=== PATIENT | female | born 1960 | race Caucasian/White ===

== ENCOUNTER 2016-12-13 10:26 | Emergency (ER) | payer SELFPAY ==
[~2016-12-13] VITALS: Ht 157.5 cm; Wt 95.0 kg
[~2016-12-13 10:26] MED LIST: ESTR1TAB12 PO; LORTA5 PO
[2016-12-13 10:28] VITALS: BP 128/84; PULSE 102; RESP 24; TEMP 97.8; O2SAT 94
[2016-12-13 11:15] VITALS: O2SAT 93
[2016-12-13] MEDS ORDERED: methylPREDNISolone SOD SUCC 125 MG/2 ML VIAL IVP ONE (11:15)
[2016-12-13] MEDS: RESP: ALBUTEROL 2.5 MG/IPRATROPIUM 0.5 MG NEB (SCH) INH ×2 (11:15→12:40)
[2016-12-13] MEDS ORDERED: SODIUM CHLORIDE 0.9% FLUSH 5 ML FLUSH IVF PRN (11:15)
[2016-12-13 11:47] LABS: AUTOMATED NEUTROPHIL # 4.8 TH/MM3 (1.8-7.7); BASOPHIL # 0.1 TH/MM3 (0-0.2); BASOPHIL % 0.6 % (0.0-2.0); EOSINOPHIL # 0.4 TH/MM3 (0-0.4); EOSINOPHIL % 4.2 % (0.0-4.0); HEMATOCRIT 41.3 % (35.0-46.0); HEMO FLAGS DIFF FINAL; LYMPH % 36.6 % (9.0-44.0); LYMPHOCYTE # 3.7 TH/MM3 (1.0-4.8); MEAN CELL VOLUME 82.2 FL (80.0-100.0); MEAN CORPUSCULAR HEMOGLOBIN 27.5 PG (27.0-34.0); MEAN CORPUSCULAR HGB CONC 33.5 % (32.0-36.0); MONO % 10.6 % (0.0-8.0); PLATELET COUNT 301 TH/MM3 (150-450); RED BLOOD COUNT 5.03 MIL/MM3 (4.00-5.30); WHITE BLOOD COUNT 10.1 TH/MM3 (4.0-11.0)
--- NOTE | 2016-12-13 11:58 | RADRPT ---
EXAM DATE/TIME: 12/13/2016 11:30 [facility] COMPARISON: No previous studies available for comparison. INDICATIONS : Short of Breath MEDICAL HISTORY : Chronic obstructive pulmonary disease. SURGICAL HISTORY : None. ENCOUNTER: Initial ACUITY: 1 day PAIN SCORE: 0/10 LOCATION: Bilateral chest FINDINGS: A single view of the chest demonstrates the lungs to be symmetrically aerated without evidence of mas s, infiltrate or effusion. The cardiomediastinal contours are unremarkable. Osseous structures are intact. CONCLUSION: No acute pulmonary infiltrates. González Santiago MD on December 13, 2016 at 11:56 Board Certified Radiologist. This report was verified electronically.
[2016-12-13 12:00] LABS: ANION GAP 9 MEQ/L (5-15); BICARBONATE 28.3 MEQ/L (21.0-32.0); BLOOD UREA NITROGEN 15 MG/DL (7-18); CHLORIDE 107 MEQ/L (98-107); GLOMERULAR FILTRATION RATE 81 ML/MIN (>89); POTASSIUM 4.1 MEQ/L (3.5-5.1); SODIUM (NA) 144 MEQ/L (136-145)
[2016-12-13 12:47] VITALS: BP 122/68; PULSE 84; RESP 18; O2SAT 98
[2016-12-13] MEDS ORDERED: ZITHTAB PO (13:15)
[2016-12-13] MEDS ORDERED: ADVA250A INH (13:15)
[2016-12-13] MEDS ORDERED: ALBU6.7H INH (13:15)
[2016-12-13] MEDS ORDERED: PRED50 PO (13:15)
--- NOTE | 2016-12-13 13:15 | PD ---
HPI Chief Complaint: Respiratory Symptoms Time Seen by Provider: 11:06 Travel History International Travel<30 days: No Contact w/Intl Traveler<30days: No Traveled to known affect area: No History of Present Illness HPI 56-year-old female with history of COPD, nursing notes reviewed, presents to the ER today because she is having one-week history of coughing and shortness of breath, worsening in the past day. She states that she has been using her inhaler without significant relief. She denies any fevers or any other issues. Symptoms worsen with laying down and walking around. Modifying Factors: Worse with exertion and laying down Associated Signs & Symptoms: Coughing and shortness of breath worsening in the past day, going on for a week Risk Factors: COPD PFSH Past Medical History Anxiety: Yes COPD: Yes Musculoskeletal: Yes (CHRONIC BACK PAIN AND SCIATICA) ?: Not Menopausal: Yes : 0 Social History Alcohol Use: No Tobacco Use: Yes (1 PPD X 30 YEARS) Substance Use: No Allergies-Medications (Allergen,Severity, Reaction): Coded Allergies: No Known Allergies (Verified , 12/13/16) Reported Meds & Prescriptions Reported Meds & Active Scripts Active Lortab 5/325 Tab (Hydrocodone-Acetaminophen) 1 Tab Tab 1 Tab PO Q6 PRN Reported Estrace (Estradiol) 1 Mg Tab 1 Mg PO DAILY Review of Systems Except as stated in HPI: all other systems reviewed are Neg Physical Exam Narrative GENERAL: Well-nourished, well-developed middle age white female patient in mild respiratory distress. Awake and oriented 3. SKIN: Warm and dry. HEAD: Normocephalic. EYES: No scleral icterus. No injection or drainage. NECK: Supple, trachea midline. CARDIOVASCULAR: Regular rate and rhythm without murmurs, gallops, or rubs. RESPIRATORY: Breath sounds equal and decreased throughout with mild wheezing throughout bilaterally. Mild accessory muscle use. GASTROINTESTINAL: Abdomen soft, non-tender, nondistended. MUSCULOSKELETAL: No cyanosis, or edema. BACK: Nontender without obvious deformity. No CVA tenderness. Data Data Last Documented VS Vital Signs Date Time Temp Pulse Resp B/P Pulse Ox O2 Delivery O2 Flow Rate FiO2 12/13/16 12:47 84 18 122/68 98 Nasal Cannula 2 12/13/16 11:15 21 12/13/16 10:28 97.8 Orders Electrocardiogram (12/13/16 ) Complete Blood Count With Diff (12/13/16 11:06) Basic Metabolic Panel (Bmp) (12/13/16 11:06) B-Type Natriuretic Peptide (12/13/16 11:06) Troponin I (12/13/16 11:06) Iv Access Insert/Monitor (12/13/16 11:06) Ecg Monitoring (12/13/16 11:06) Oximetry (12/13/16 11:06) Oxygen Administration (12/13/16 11:06) Chest, Single Ap (12/13/16 11:06) Sodium Chloride 0.9% Flush (Ns Flush) (12/13/16 11:15) Methylprednisolone So Succ Inj (Solumedr (12/13/16 11:15) Albuterol-Ipratropium Neb (Duoneb Neb) (12/13/16 11:15) Albuterol-Ipratropium Neb (Duoneb Neb) (12/13/16 12:30) Labs Laboratory Tests Test 12/13/16 11:21 White Blood Count 10.1 TH/MM3 Red Blood Count 5.03 MIL/MM3 Hemoglobin 13.8 GM/DL Hematocrit 41.3 % Mean Corpuscular Volume 82.2 FL Mean Corpuscular Hemoglobin 27.5 PG Mean Corpuscular Hemoglobin 33.5 % Concent Red Cell Distribution Width 14.0 % Platelet Count 301 TH/MM3 Mean Platelet Volume 8.6 FL Neutrophils (%) (Auto) 48.0 % Lymphocytes (%) (Auto) 36.6 % Monocytes (%) (Auto) 10.6 % Eosinophils (%) (Auto) 4.2 % Basophils (%) (Auto) 0.6 % Neutrophils # (Auto) 4.8 TH/MM3 Lymphocytes # (Auto) 3.7 TH/MM3 Monocytes # (Auto) 1.1 TH/MM3 Eosinophils # (Auto) 0.4 TH/MM3 Basophils # (Auto) 0.1 TH/MM3 CBC Comment DIFF FINAL Differential Comment Sodium Level 144 MEQ/L Potassium Level 4.1 MEQ/L Chloride Level 107 MEQ/L Carbon Dioxide Level 28.3 MEQ/L Anion Gap 9 MEQ/L Blood Urea Nitrogen 15 MG/DL Creatinine 0.74 MG/DL Estimat Glomerular Filtration 81 ML/MIN Rate Random Glucose 93 MG/DL Calcium Level 8.8 MG/DL Troponin I LESS THAN 0.02 NG/ML B-Type Natriuretic Peptide 25 PG/ML MDM Medical Decision Making Medical Screen Exam Complete: Yes Emergency Medical Condition: Yes Medical Record Reviewed: Yes Interpretation(s) EKG shows NSR at a rate of 90 bpm, no ST elevation or depression, and no arrhythmias. No significant T-wave inversions. Laboratory Tests Test 12/13/16 11:21 Monocytes (%) (Auto) 10.6 % (0.0-8.0) Eosinophils (%) (Auto) 4.2 % (0.0-4.0) Monocytes # (Auto) 1.1 TH/MM3 (0-0.9) Estimat Glomerular Filtration 81 ML/MIN (>89) Rate Troponin I LESS THAN 0.02 NG/ML (0.02-0.05) Last 24 hours Impressions Chest X-Ray 12/13/16 1106 Signed Impressions: Service Date/Time: Tuesday, December 13, 2016 11:30 - CONCLUSION: No acute pulmonary infiltrates. González Santiago MD Differential Diagnosis Coughing, shortness of breathCOPD exacerbation versus CHF versus pneumonia versus bronchitis Narrative Course Chest x-ray did not indicate any signs of pneumonia. Patient was given some Medrol and DuoNeb's in the ER. On reevaluation at 1 PM, she is feeling improved and her saturations improved. At this point, my plan would be to release the patient would follow-up to primary care physician. Return for any worsening in symptoms as needed. The plan has been discussed with her and she states understanding. Diagnosis Primary Impression: COPD exacerbation Med/Other Pt SpecificInfo: Prescription(s) given Scripts Fluticasone-Salmeterol Inh (Advair Diskus Inh)250-50 Mcg/Blist Aer1 Puff INH BID #1 INHALER Ref 0 Rinse mouth after use. Prov:Joceline Rivera MD 12/13/16 Azithromycin (Zithromax Z-Yasmany)250 Mg [id number] Mg PO DIRECTED #1 DSPK Ref 0 500 MG (2 tabs) day 1, then 1 tab days 2-5. Prov:Joceline Rivera MD 12/13/16 Albuterol 6.7 GM Inh (Proventil Hfa 6.7 GM Inh)90 Mcg/Act Aer2 Puff INH Q4-6H PRN (SHORTNESS OF BREATH) #1 INHALER Ref 0 Prov:Joceline Rivera MD 12/13/16 Prednisone 50 Mg Tab50 Mg PO DAILY #5 TAB Ref 0 Prov:Joceline Rivera MD 12/13/16 Disposition: 01 DISCHARGE HOME Condition: Stable Joceline Rivera MD Dec 13, 2016 13:15
--- NOTE | 2016-12-13 14:43 | EKG ---
Date Performed: 12/13/2016 Time Performed: 10:41:24 PTAGE: 56 years EKG: Sinus rhythm POSSIBLE LEFT ATRIAL ENLARGEMENT POSSIBLE RIGHT VENTRICULAR CONDUCTION DELAY SEPTAL MYOCARDIAL INFAR CTION Compared to previous tracing, R wave progression is worse, possibly due to lead placement diffe rences ABNORMAL ECG NO PREVIOUS TRACING DOCTOR: Bryan Moore Interpretating Date/Time 12/13/2016 14:41:08
== END 2016-12-13 13:52 | disposition home or self-care (01) ==
LOC: NEPA 10:26
DX: J44.1 Chronic obstructive pulmonary disease with (acute) exacerbation (principal); F41.9 Anxiety disorder, unspecified; Z87.891 Personal history of nicotine dependence
CPT/HCPCS: 71010; 80048; 83880; 84484; 85025; 93005; 94640; 94664; 96374; 99284; J2930

== ENCOUNTER 2017-10-15 17:42 | Emergency (ER) | payer SELFPAY ==
[~2017-10-15 17:42] MED LIST changes: +ADVA250A INH; +ALBU6.7H INH; +PRED50 PO; +ZITHTAB PO
[2017-10-15 17:45] VITALS: BP 178/96; PULSE 89; RESP 16; TEMP 98.4; O2SAT 100
--- NOTE | 2017-10-15 18:42 | RADRPT ---
EXAM DATE/TIME: 10/15/2017 18:18 [facility] COMPARISON: No previous studies available for comparison. INDICATIONS : Right wrist pain post fall today MEDICAL HISTORY : None. SURGICAL HISTORY : None. ENCOUNTER: Initial ACUITY: 1 day PAIN SCORE: 9/10 LOCATION: Right entire wrist FINDINGS: There is a nondisplaced intra-articular fracture of the distal radius. No dislocation. There some ove rlying soft tissue swelling. No other fractures are seen. CONCLUSION: 1. Relatively nondisplaced fracture distal radius. No other fractures identified. Chito Ruvalcaba MD on October 15, 2017 at 18:39 Board Certified Radiologist. This report was verified electronically.
--- NOTE | 2017-10-15 19:41 | PD ---
HPI Chief Complaint: Injury Time Seen by Provider: 19:38 Travel History International Travel<30 days: No Contact w/Intl Traveler<30days: No Traveled to known affect area: No History of Present Illness HPI 57-year-old female presents for evaluation of right wrist pain. She reports that 3 hours prior to arrival she slipped and fell, landing on her outstretched right hand. She has pain in the right wrist joint, throbbing, constant, worse with movement. Denies any numbness, tingling, weakness. Denies any other injuries and she has no other complaints at this time. [facility] Past Medical History Anxiety: Yes COPD: Yes Diabetes: No Patient Takes Glucophage: No Diminished Hearing: No Musculoskeletal: Yes (CHRONIC BACK PAIN AND SCIATICA) Menopausal: Yes : 0 Past Surgical History Surgical History: No Previous Surgery Social History Alcohol Use: No Tobacco Use: Yes (1 PPD X 30 YEARS) Substance Use: No Allergies-Medications (Allergen,Severity, Reaction): Coded Allergies: No Known Allergies (Verified , 12/13/16) Reported Meds & Prescriptions Reported Meds & Active Scripts Active Advair Diskus Inh (Fluticasone-Salmeterol Inh) 250-50 Mcg/Blist Aer 1 Puff INH BID Rinse mouth after use. Zithromax Z-Yasmany (Azithromycin) 250 Mg Dspk 250 Mg PO DIRECTED 500 MG (2 tabs) day 1, then 1 tab days 2-5. Proventil Hfa 6.7 GM Inh (Albuterol Sulfate) 90 Mcg/Act Aer 2 Puff INH Q4-6H PRN Prednisone 50 Mg Tab 50 Mg PO DAILY Hydrocodone/Acetaminophen 5 mg/325 mg 1 Tab Tab 1 Tab PO Q6 PRN Reported Estrace (Estradiol) 1 Mg Tab 1 Mg PO DAILY Review of Systems General / Constitutional: No: Fever, Chills Cardiovascular: No: Chest Pain or Discomfort Respiratory: No: Shortness of Breath Musculoskeletal: Positive: Pain Skin: Positive Other (denies open wounds) Physical Exam Narrative GENERAL: Well-developed well-nourished female in no acute distress SKIN: Warm and dry. HEAD: Atraumatic. Normocephalic. EYES: Pupils equal and round. No scleral icterus. No injection or drainage. ENT: No nasal bleeding or discharge. Mucous membranes pink and moist. NECK: Trachea midline. No JVD. CARDIOVASCULAR: Regular rate and rhythm. No murmur appreciated. RESPIRATORY: No accessory muscle use. Clear to auscultation. Breath sounds equal bilaterally. MUSCULOSKELETAL: Some soft tissue swellings developing to the right wrist joint. Tender to palpation right wrist joint. There is pain with flexion, extension, supination and pronation. Capillary refill less than 2 seconds all digits right hand. 2+ radial pulse. NEUROLOGICAL: Awake and alert. No obvious cranial nerve deficits. Motor grossly within normal limits. Normal speech. Data Data Last Documented VS Vital Signs Date Time Temp Pulse Resp B/P (MAP) Pulse Ox O2 Delivery O2 Flow Rate FiO2 10/15/17 17:45 98.4 89 16 178/96 (123) 100 Orders Orders Wrist, Complete ([id number]) (10/15/17 ) Splint Or Brace Apply/Monitor (10/15/17 19:37) Acetamin-Hydrocod 325-5 Mg ([place] 5-325 (10/15/17 19:45) Ed Discharge Order (10/15/17 19:37) [facility] Medical Decision Making Medical Screen Exam Complete: Yes Emergency Medical Condition: Yes Medical Record Reviewed: Yes Differential Diagnosis Wrist fracture, sprain, dislocation Narrative Course X-ray imaging of the right wrist reveals a nondisplaced distal radius fracture. The patient will be placed in a sugar tong splint, outpatient follow-up with orthopedics recommended. She reports that she has pain medication at home and does not require any prescriptions. She is stable for discharge. Diagnosis Primary Impression: Right wrist fracture Referrals: Varun Millan MD Additional Instructions: Follow-up with an orthopedist such as Dr. Millan in the next week, call his office to make an appointment. Do not remove the splint. Ice pack several times a day 20 minutes at a time, elevate to reduce swelling. Return for any emergent medical conditions. Med/Other Pt SpecificInfo: Orthopedic Instructions Disposition: 01 DISCHARGE HOME Condition: Stable Phani Ramirez Oct 15, 2017 19:41
[2017-10-15] MEDS ORDERED: HYDR-3583 PO (19:42)
[2017-10-15] MEDS ORDERED: SYMB80AE INH (19:42)
[2017-10-15] MEDS ORDERED: ACETAMINOPHEN/HYDROcodone 325 MG/5 MG TAB PO ONE (19:45)
== END 2017-10-15 20:45 | disposition home or self-care (01) ==
LOC: NEPD 17:42
DX: S52.501A Unspecified fracture of the lower end of right radius, initial encounter for closed fracture (principal); F41.9 Anxiety disorder, unspecified; J44.9 Chronic obstructive pulmonary disease, unspecified; F17.200 Nicotine dependence, unspecified, uncomplicated; W01.0XXA Fall on same level from slipping, tripping and stumbling without subsequent striking against object, initial encounter; Z79.51 Long term (current) use of inhaled steroids; Z79.899 Other long term (current) drug therapy
CPT/HCPCS: 29125; 73110

== ENCOUNTER 2017-10-19 10:38 | Emergency (ER) | payer SELFPAY ==
[~2017-10-19] VITALS: Ht 157.5 cm; Wt 90.0 kg
[~2017-10-19 10:38] MED LIST changes: -ADVA250A INH; -ALBU6.7H INH; -ESTR1TAB12 PO; +HYDR-3583 PO; -LORTA5 PO; -PRED50 PO; +SYMB80AE INH; -ZITHTAB PO
[2017-10-19 10:39] VITALS: BP 163/104; PULSE 103; RESP 16; TEMP 97.7; O2SAT 95
--- NOTE | 2017-10-19 11:36 | PD ---
HPI Chief Complaint: Medical Clearance Time Seen by Provider: 11:17 Travel History International Travel<30 days: No Contact w/Intl Traveler<30days: No Traveled to known affect area: No History of Present Illness HPI This is a 57-year-old female with a known right nondisplaced distal radius fracture. She presents today requesting that the cast be removed due to pain, swelling, inability to care for herself due to elbow immobilization. Patient reports that she is currently homeless and living in a long term. She currently has a sugar tong splint in place. It prevents her from being able to move the elbow therefore she cannot pull up her pain is on her own and is unable to care for herself. She is requesting that a smaller splint that just immobilizes the wrist and forearm to be placed so that she can care for herself. She reports swelling within the hand but denies paresthesia or weakness of the fingers. She denies worsening pain. PFSH Past Medical History Anxiety: Yes COPD: Yes Diabetes: No Diminished Hearing: No Musculoskeletal: Yes (CHRONIC BACK PAIN AND SCIATICA) ?: Not Menopausal: Yes : 0 Social History Alcohol Use: No Tobacco Use: Yes (1 PPD X 30 YEARS) Substance Use: No Allergies-Medications (Allergen,Severity, Reaction): Coded Allergies: No Known Allergies (Verified Adverse Reaction, Unknown, 10/19/17) Reported Meds & Prescriptions Reported Meds & Active Scripts Active Reported Symbicort Inh (Budesonide/Formoterol Fumarate) 80-4.5 Mcg/Act Aero 1 Puff INH Q12HR Review of Systems Except as stated in HPI: all other systems reviewed are Neg Physical Exam Narrative GENERAL: Alert female. Well-appearing. SKIN: Warm and dry. HEAD: Normocephalic. EYES: No scleral icterus. No injection or drainage. NECK: Supple, trachea midline. No JVD or lymphadenopathy. MUSCULOSKELETAL: No cyanosis. Right upper extremity: Sugar tong cast was removed. Compartments in the forearm and hand are soft. The wrist is in normal alignment without deformity. 2+ radial/ulna pulses. Normal sensation in the hand. The extremity is warm. Brisk cap refill. Data Data Last Documented VS Vital Signs Date Time Temp Pulse Resp B/P (MAP) Pulse Ox O2 Delivery O2 Flow Rate FiO2 10/19/17 10:39 97.7 103 16 163/104 (123) 95 Room Air Orders Orders [employer] Request For Service (10/19/17 11:23) MDM Medical Decision Making Medical Screen Exam Complete: Yes Emergency Medical Condition: Yes Differential Diagnosis Distal radius fracture, compartment syndrome, splint removal/resplinted Narrative Course This is a 57-year-old female here with known distal radius fracture and has a sugar tong splint in place. She is requesting that the splint be removed and replaced with something smaller so that she can care for herself. She reports that she is homeless and currently living in a long term. She is unable to remove her pants and underwear to use the restroom with out use of her right elbow. It was discussed at length that applying a smaller splint although unlikely could result in displacement of the fracture which could cause permanent disability of the extremity or possibility of loss of limb. She excepts these risks and would like to move forward with a smaller splint. I personally looked at the x-rays and feel that a volar splint would be appropriate for this patient. She was again referred to or that for follow-up Diagnosis Primary Impression: Distal radius fracture, right Qualified Codes: S52.501A - Unspecified fracture of the lower end of right radius, initial encounter for closed fracture Referrals: Orthopedist Additional Instructions: Chief the splint in place until follow-up with orthopedic doctor. Ice and elevate the extremity. Disposition: 01 DISCHARGE HOME Condition: Stable ChangramboKayleigh MAURICE Oct 19, 2017 11:36
== END 2017-10-19 12:21 | disposition home or self-care (01) ==
LOC: NEPK 10:38
DX: S52.501A Unspecified fracture of the lower end of right radius, initial encounter for closed fracture (principal); X58.XXXA Exposure to other specified factors, initial encounter
CPT/HCPCS: 29125